=== PATIENT | female | born 1980 | race Two or more races ===

== ENCOUNTER 2024-03-27 12:38 | Emergency (ER) | payer BC ==
[~2024-03-27] VITALS: Ht 162.6 cm; Wt 75.0 kg
[2024-03-27 12:44] VITALS: O2SAT 97
[2024-03-27] MEDS ORDERED: clonidine (12:44)
[2024-03-27] MEDS ORDERED: hydroxyzine (12:44)
[2024-03-27] MEDS ORDERED: seroquel (12:44)
[2024-03-27] MEDS ORDERED: ibuprofen (12:44)
[2024-03-27] MEDS ORDERED: gabapentin (12:44)
[2024-03-27] MEDS ORDERED: promethazine (12:44)
[2024-03-27] MEDS: AMPICILLIN SOD/SULBACTAM NA 3 G in SODIUM CHLORIDE 0.9% 100 ML IV STA (13:16)
[2024-03-27] MEDS: SODIUM CHLORIDE 0.9% 1,000 ML IV ONE (13:30)
[2024-03-27] MEDS: DEXAMETHASONE 10 MG/ML VIAL IV ONE (13:30)
[2024-03-27 13:54] LABS: BASOPHILS % 0.5 % (0.0-2.0); HEMATOCRIT. 36.2 % (36.0-48.0); LYMPHOCYTES % 12.7 % (20.0-50.0); MEAN CORPUSCULAR HGB CONC 33.2 g/dL (31.0-37.0); MEAN CORPUSCULAR VOLUME 84.6 fL (81.0-99.0); MONOCYTES % 8.5 % (2.0-8.0); NEUTROPHILS % 77.3 % (40.0-76.0); PLATELET 249 x1000/uL (130-400); RED BLOOD CELL COUNT 4.28 mill/uL (4.2-5.4); RED CELL DISTRIBUTION WIDTH 12.6 % (11.6-14.6); WHITE BLOOD COUNT 11.8 x1000/uL (4.5-11.0)
[2024-03-27 14:01] LABS: CHLORIDE 105 mEq/L (98-107); POTASSIUM 4.1 mEq/L (3.5-5.1); SODIUM 135 mEq/L (136-145)
[2024-03-27 14:02] LABS: CARBON DIOXIDE 26 mEq/L (21-32)
[2024-03-27 14:03] LABS: CALCIUM 9.2 mg/dL (8.7-10.4)
[2024-03-27 14:07] LABS: CREATININE 0.8 mg/dL (0.6-1.0); GLUCOSE 102 mg/dL (70-105)
[2024-03-27 14:08] LABS: UREA NITROGEN BLOOD 11 mg/dL (9-23)
[2024-03-27 14:09] LABS: HCG SCREEN NEGATIVE
[2024-03-27] MEDS: ACETAMINOPHEN 325MG TABLET PO ONE (14:41)
[2024-03-27] MEDS: IBUPROFEN 400MG TABLET PO ONE (14:42)
[2024-03-27] MEDS ORDERED: IBUP-2028 MT (15:01)
[2024-03-27] MEDS ORDERED: AMOX-494 MT (15:01)
[2024-03-27] MEDS: KETOROLAC 30MG/ML VIAL IM ONE (15:24)
[2024-03-27] MEDS: DEXAMETHASONE 10 MG/ML VIAL IM ONE (15:24)
[2024-03-27] MEDS: AMOXICILLIN 500MG CAPSULE PO ONE (15:41)
[2024-03-27 16:05] VITALS: BP 100/56; PULSE 105; RESP 18; TEMP 36.78072; O2SAT 98
== END 2024-03-27 16:21 | disposition home or self-care (01) ==
LOC: ER 12:38
DX: J02.9 Acute pharyngitis, unspecified (principal); F32.9 Major depressive disorder, single episode, unspecified; Z79.899 Other long term (current) drug therapy; Z20.822 Contact with and (suspected) exposure to COVID-19
CPT/HCPCS: 99285; 71045; 87426; 80048; 84703; 87430; 85025; 87070; 36415; 93005; 96372; J0295; J1100; J1885; J7050; J7030